=== PATIENT | male | born 1970 | race Caucasian/White ===

== ENCOUNTER 2016-10-14 18:01 | Inpatient (IN) | payer BC ==
[~2016-10-14] VITALS: Ht 182.8 cm; Wt 90.7 kg
--- NOTE | ~2016-10-14 | CON ---
[place], [place] REPORT OF CONSULTATION NAME[id number] UNIT #: [id number] ROOM: H2020 DOCTOR: STEPHANIE DAMONLUPEPHAN BIRTHDATE: [birth year] DOS: 10/15/2016 [facility] CARDIOLOGY CONSULTATION REQUESTING PHYSICIAN: Dr. Foote. REASON FOR CONSULTATION: Dizziness. ASSESSMENT: 1. Initial presentation with dizziness, lightheadedness, and severe vertigo. 2. Frequent premature ventricular contractions, mostly unifocal and asymptomatic were noticed on the monitor. 3. Probable undiagnosed hypertension. 4. Known history of anxiety, the patient on Paxil. 5. Evidence of hyperlipidemia on current lipid panel in the ER. 6. Previous history of alcohol abuse. 7. Slightly elevated total bilirubin of 2.9. PLAN: 1. Cycle cardiac enzymes. 2. Consider meclizine. 3. Enteric-coated aspirin 81 mg. 4. Lopressor 25 mg 1 tablet p.o. b.i.d. 5. Echocardiogram that can be done as an outpatient. 6. Thyroid function test. 7. Back on exercise as management of the patient's borderline hyperlipidemia and low HDL. 8. The patient can be discharged home with early followup in our clinic within 2-4 weeks. 9. The patient advised to call back for any recurrent complaints or for worsening complaints or any new cardiac symptoms that was detailed to the patient. HISTORY OF PRESENT ILLNESS: The patient is a pleasant 45-year-old gentleman unknown to our practice, was referred by Dr. Foote for further evaluation of an incidental finding of a frequent asymptomatic PVCs that were noticed on the monitor while the patient was in the emergency room. The patient initially presented with feeling dizzy and lightheaded that occurred last Thursday. This got worse and progressed to severe vertigo, which kept the patient ____. The patient took Dramamine that he usually takes when he ____ with significant improvement predicted. Never had any chest pain, chest pressure, heaviness or tightness. Never had any symptomatic palpitation nor any associated dizziness, lightheadedness, or near syncope. The patient used to be active, does not follow a regular exercise program. No fever, no chills, no night sweats. Good appetite, no weight loss. PAST MEDICAL HISTORY: As detailed in my assessment. SOCIAL HISTORY: The patient denies any current tobacco, alcohol, or illicit drug abuse. The patient had a previous history of alcohol and drug abuse many [place], [place] REPORT OF CONSULTATION NAME: JAJA OLSEN UNIT #: [id number] ROOM: H2020 DOCTOR: LAURIE BROWN MD BIRTHDATE: 66 years ago. FAMILY HISTORY: There is no early family history of heart disease. CURRENT MEDICATIONS: Meclizine, Restoril, Dulcolax, Tylenol. ALLERGIES: The patient has no known drug allergies. REVIEW OF SYSTEMS: Currently, the patient denies any headache, diplopia or blurry vision. No fever, no chills, no night sweats. No abdominal pain, no bright blood per rectum, no tarry stools, no joint pain, no muscular pain. The patient has one known history of anxiety, but no depression. No polyuria, no polydipsia, no skin rash. Review of all other systems has been negative. PHYSICAL EXAMINATION: GENERAL: The patient is alert, oriented x3, quite pleasant, sitting up in bed. The patient's mother and father in the room. VITAL SIGNS: Blood pressure 145/70, heart rate 104, respiratory rate of 16, temperature 97.3. HEENT: Extraocular muscles intact. Pupils equal, round, reactive to light. Conjunctivae, no pallor. Throat, no petechiae. NECK: Good upstroke. Unable to appreciate any bruit, no lymphadenopathy, no thyromegaly. HEART: S1, S2 with faint holosystolic murmur in left upper sternal border, loud P2. No rub, no retrosternal heave. CHEST AND BACK: No deformities. LUNGS: Clear to auscultation. Good air movement. No wheezing, rales. ABDOMEN: Soft, nontender, present bowel sounds, no masses, no bruits. LOWER EXTREMITIES: There is no edema with faint distal pulses. NEUROLOGIC: Grossly nonfocal. SKIN: No significant rash. DIAGNOSTIC DATA: Electrocardiogram show sinus tachycardia with a heart rate of 130. There is poor R-wave progression and frequent unifocal PVCs ____. LABORATORY DATA: White count is 6.0, hemoglobin 15.7. There is no left shift. Potassium 3.2, glucose 145. Total bilirubin 2.9. Troponin less than 0.015. Triglycerides 328, total cholesterol 230, LDL 129, HDL 35. Vitamin D 8.4. Urine tox screen is negative. [place], [place] REPORT OF CONSULTATION NAME: JAJA OLSEN UNIT #: [id number] ROOM: [facility] DOCTOR: LAURIE BROWN MD BIRTHDATE: [birth year] LAURIE BROWN MD CM:CONSTR:REPORT OF CONSULTATION 1139 10/16/16 0036 interface
[2016-10-14] MEDS ORDERED: PAROXETINE HCL20 MG PO (18:31)
[2016-10-14 18:33] VITALS: BP 154/95
[2016-10-14 19:28] LABS: BASO % 0.4 % (0.0-1.0); EOS % 0.6 % (1.0-4.0); HEMATOCRIT 44.4 % (42.0-52.0); HEMOGLOBIN 15.9 g/dl (14.0-18.0); LYMPH # 1.4 10*3/uL (1.3-4.4); LYMPH % 30.5 % (27.0-41.0); MEAN CELL VOLUME 83.3 fl (80.0-94.0); MEAN CORPUSCULAR HGB 29.8 pg (27.0-31.0); MEAN CORPUSCULAR HGB CONC 35.8 g/dl (33.0-37.0); MEAN PLATELET VOLUME 11.2 fl (9.6-12.3); MONO # 0.3 10*3/uL (0.1-1.0); MONO % 5.3 % (3.0-9.0); PLATELET COUNT AUTOMATED 133 10*3/uL (130-400); RED BLOOD COUNT 5.33 10*6/uL (4.50-5.90); RED CELL DISTRI WIDTH 13.2 % (0-14.5); WHITE BLOOD COUNT 4.7 10*3/uL (4.8-10.8)
[2016-10-14 19:43] LABS: BILIRUBIN NEGATIVE (NEGATIVE); BLOOD NEGATIVE (NEGATIVE); CLARITY CLEAR (CLEAR); COLOR YELLOW (YELLOW); GLUCOSE NEGATIVE (NEGATIVE); KETONE NEGATIVE (NEGATIVE); LEUKO ESTERASE NEGATIVE (NEGATIVE); NITRITE NEGATIVE (NEGATIVE); PROTEIN NEGATIVE (NEGATIVE); SPECIFIC GRAVITY 1.015 (1.005-1.030)
[2016-10-14 19:49] LABS: ALBUMIN 4.4 gm/dl (3.1-4.5); ALKALINE PHOSPHATASE 82 U/L (45-117); BILIRUBIN, TOTAL 3.1 mg/dl (0.2-1.0); BUN 19 mg/dl (7-24); CARBON DIOXIDE 30 mmol/L (21-32); CHLORIDE 103 mmol/L (98-107); EST GLOM FILT AFRICAN AMERICAN > 60 ml/min; GLUCOSE 111 mg/dL (65-99); POTASSIUM 3.9 mmol/L (3.5-5.1); SGOT/AST 18 IU/L (3-35); SGPT/ALT 38 U/L (12-78); SODIUM 143 mmol/L (136-145); TOTAL PROTEIN 7.5 gm/dL (6.4-8.2)
[2016-10-14 19:51] LABS: TROPONIN I < 0.015 ng/ml (<0.045)
[2016-10-14 20:09] VITALS: BP 166/90
[2016-10-14 20:09] LABS: BACTERIA 1+; EPITHELIAL CELLS 0-2
[2016-10-14 20:10] LABS: URINE REFLEX COMMENT NO (NO)
[2016-10-14 20:49] VITALS: BP 168/81
[2016-10-14 21:20] VITALS: BP 148/65
[2016-10-14 23:27] VITALS: BP 154/94
[2016-10-15 01:00] VITALS: BP 154/84
[2016-10-15 04:11] VITALS: BP 134/76; BP 144/76
[2016-10-15 05:48] LABS: ALBUMIN 4.2 gm/dl (3.1-4.5); ALKALINE PHOSPHATASE 80 U/L (45-117); BILIRUBIN, TOTAL 2.9 mg/dl (0.2-1.0); BUN 14 mg/dl (7-24); CARBON DIOXIDE 27 mmol/L (21-32); CHLORIDE 103 mmol/L (98-107); CHOLESTEROL 230 mg/dL (<200); EST GLOM FILT AFRICAN AMERICAN > 60 ml/min; GLUCOSE 145 mg/dL (65-99); HDL CHOLESTEROL 35 mg/dl (40-60); LDL CHOLESTEROL 129 mg/dL (9-159); MAGNESIUM 1.9 mg/dL (1.5-2.1); PHOSPHOROUS 3.3 mg/dL (2.5-4.9); POTASSIUM 3.2 mmol/L (3.5-5.1); SGOT/AST 17 IU/L (3-35); SGPT/ALT 37 U/L (12-78); SODIUM 142 mmol/L (136-145); TOTAL PROTEIN 7.4 gm/dL (6.4-8.2); TRIGLYCERIDES 328 mg/dl (<150); VLDL CHOLESTEROL 66 mg/dL (6-40)
[2016-10-15 06:15] LABS: BASO % 0.5 % (0.0-1.0); EOS % 0.5 % (1.0-4.0); HEMATOCRIT 43.4 % (42.0-52.0); HEMOGLOBIN 15.7 g/dl (14.0-18.0); LYMPH # 1.7 10*3/uL (1.3-4.4); LYMPH % 28.2 % (27.0-41.0); MEAN CORPUSCULAR HGB 29.7 pg (27.0-31.0); MEAN CORPUSCULAR HGB CONC 36.2 g/dl (33.0-37.0); MEAN PLATELET VOLUME 11.6 fl (9.6-12.3); MONO # 0.3 10*3/uL (0.1-1.0); MONO % 4.1 % (3.0-9.0); NEUT % 66.2 % (47.0-73.0); PLATELET COUNT AUTOMATED 149 10*3/uL (130-400); RED BLOOD COUNT 5.29 10*6/uL (4.50-5.90)
[2016-10-15 06:19] LABS: INTERNATIONAL NORM RATIO 1.1 (2.0-3.5); PROTHROMBIN TIME 11.5 SECONDS (9.0-12.4)
[2016-10-15 06:58] LABS: VITAMIN D, 25-HYDROXY 8.4 ng/mL (30-100)
[2016-10-15 07:00] LABS: FOLIC ACID > 24.00 ng/mL (>5.38)
[2016-10-15 07:32] VITALS: BP 145/70
[2016-10-15 08:08] VITALS: BP 145/70
[2016-10-15 12:00] VITALS: BP 125/75
== END 2016-10-15 13:30 | disposition home or self-care (01) | DRG 310 ==
LOC: ED 18:01 → EDHOLD 20:22 → 5E 20:44 → EDHOLD 20:44
PROVIDERS: Nurse Practitioner Family; Student in an Organized Health Care Education/Training Program
DX: I49.3 Ventricular premature depolarization (principal); I45.81 Long QT syndrome; I10 Essential (primary) hypertension; F41.9 Anxiety disorder, unspecified; E87.6 Hypokalemia; R82.71 Bacteriuria; E78.5 Hyperlipidemia, unspecified; D72.819 Decreased white blood cell count, unspecified; Z85.89 Personal history of malignant neoplasm of other organs and systems; Z84.89 Family history of other specified conditions; Z79.899 Other long term (current) drug therapy

== ENCOUNTER → 2016-11-19 | Outpatient (CLI) | payer BC ==
[~2016-11-19] MED LIST: PAROXETINE HCL20 MG PO
[2016-11-19 09:40] LABS: BUN 18 mg/dl (7-24); CARBON DIOXIDE 30 mmol/L (21-32); CHLORIDE 105 mmol/L (98-107); EST GLOM FILT AFRICAN AMERICAN > 60 ml/min; GLUCOSE 105 mg/dL (65-99); POTASSIUM 3.9 mmol/L (3.5-5.1); SODIUM 141 mmol/L (136-145)
== END | disposition home or self-care (01) ==
LOC: LAB 03:02 → CARD 09:30
PROVIDERS: Internal Medicine Cardiovascular Disease
DX: I49.9 Cardiac arrhythmia, unspecified (principal); I10 Essential (primary) hypertension; R00.8 Other abnormalities of heart beat; I34.0 Nonrheumatic mitral (valve) insufficiency

== ENCOUNTER 2017-03-18 22:35 | Emergency (ER) | payer BC ==
[~2017-03-18] VITALS: Ht 182.8 cm; Wt 90.7 kg
[2017-03-18] MEDS ORDERED: NORCO 5-325 TA1 EACH PO (22:54)
[2017-03-18] MEDS ORDERED: AMOXICILLIN500 M2 PO (22:54)
== END 2017-03-18 23:32 | disposition home or self-care (01) ==
LOC: ED 22:35
DX: K08.89 Other specified disorders of teeth and supporting structures (principal); Z90.89 Acquired absence of other organs; Z79.899 Other long term (current) drug therapy

== ENCOUNTER → 2019-06-24 | Outpatient (CLI) | payer BC ==
[~2019-06-24] MED LIST changes: +AMOXICILLIN500 M2 PO; +NORCO 5-325 TA1 EACH PO
== END | disposition home or self-care (01) ==
LOC: RAD 14:32
DX: M75.21 Bicipital tendinitis, right shoulder (principal)

== ENCOUNTER → 2019-12-21 | Outpatient (CLI) | payer BC | END | disposition home or self-care (01) | LOC: COVID19 05:41 | DX: U07.1 COVID-19 (principal) ==

== ENCOUNTER → 2023-11-13 | Outpatient (CLI) | payer BC ==
[2023-11-14 06:13] LABS: HBSAG Negative (Negative); HEP B CORE AB, IGM Negative (Negative); HEPATITIS C ANTIBODY Non Reactive (Non Reactive)
== END | disposition home or self-care (01) ==
LOC: US 10:30 → LAB 10:35
PROVIDERS: ATTEND Internal Medicine
DX: K76.0 Fatty (change of) liver, not elsewhere classified (principal); K80.20 Calculus of gallbladder without cholecystitis without obstruction; R74.8 Abnormal levels of other serum enzymes